=== PATIENT | male | born 1995 | race Caucasian/White ===

== ENCOUNTER 2016-12-18 11:04 | Emergency (ER) | payer SELFPAY ==
[~2016-12-18] VITALS: Ht 177.8 cm; Wt 154.2 kg
[~2016-12-18 11:04] MED LIST: AURALGAN O10 ML/BOTT OT; BACTROBAN2% TP; KEFLEX 500MG.500 MG PO; NOMEDS *; TESSALON PERLE100 MG PO; VOLTAREN75 MG PO; ZITHROMAX Z-PA250 M2 PO; ZOFRAN4 MG PO
--- NOTE | 2016-12-18 11:46 | Urgent Treatment Center Report ---
History of Present Issue Date/Time Seen by Provider 12/18/16 1120 Visit Reason Pt arrived:Walked Presenting Problem:PT STATES INJURING RIGHT ANKLE ON SATURDAY WHEN HE STEPPED OFF OF A STEP WRONG. Location if Accident:Relative's Property Onset of symptoms date/time:12/15/16/ or onset unknown for:MEDICAL HX UNKNOWN Have you (or family members/close friends) recently traveled outside the [place]? N If Yes, where/when: Have you had exposure to infectious disease within the past month? TB? Other? Specify: c/o right ankle pain s/p "rolling" ankle walking down stairs on Saturday, 3 days ago. Denies fall "just my foot went in and my ankle went out". Occasional ibuprofen helps some. Swelling and pain lateral ankle w/ pain radiating down lateral side of foot "towards my toes". No bruising. Tried working yesterday. [employer] at [facility] and walks alot. Pain was worse. Want to be sure no fracutre and ok to continue walking. Hasn't had any medication today. Denies weakness, Numbess, tingling. Ankle ROM slightly limited "but I can do it. Just hurts some." Source patient Exam Limitations no limitations ALLERGIES Coded Allergies: Penicillins (Mild, 09/04/16) History Medical History General CAD? No Angina: No [place]: No Hypertension? No Hyperlipidemia? No CHF? No DVT? No PE? No COPD? No Asthma? No Anemia? No GERD? No Gastric ulcers? No GI Bleed? No Hernia? No Thyroid Problems? No Hypothyroidism? No CVA? No Seizures? No Diabetes? No Insulin Dependent: No Insulin Pump: No Home FSBS? No Renal Insuffiency? No UTI? No Stones? No BPH? No GB Disease: No Nephritic Syndrome? No Asplenia? No Hepatitis? No Sickle Cell Disease? No Arthritis? No Migraines? No Cataracts? No Glaucoma? No MRSA? No HIV? No TB? No Anxiety? No Depression? No Cancer? No Immunization HX DT/Tetanus 1-4 Years Ago Surgical Hx Previous Surgery?Y TONSILLECTOMY DOG BIT FACE Social History Smoking Hx Smoker: Former Smoker Tobacco: No Packs/day 1 1/2 - 2 Packs Alcohol Alcohol: No Review of Systems All Other Systems Reviewed and Negative Musculoskeletal see HPI Skin see HPI Psychiatric/Neurological see HPI Physical Exam Vital Signs Vital Signs Date Time Temp Pulse Resp B/P Pulse O2 O2 Flow FiO2 Ox Delivery Rate 12/18 1251 98.1 71 20 142/84 95 12/18 1113 98.1 71 20 142/84 95 General Appearance normal appearance, no apparent distress Respiratory Status No: respiratory distress. Cardiovascular regular rate/rhythm, no murmur Peripheral Pulses Pulses normal Yes (DP/PT bilateral) Back gait abnormality (slight limp favoring rt foot) Extremities normal range of motion (rt toes, ankle, knee), normal capillary refill, swelling (lateral rt malleous), mild tenderness rt lateral malleous and 4th, 5th metatarsal anteriorly only Strength 5 Lower Ext (L), 5 Lower Ext (R) Neurologic alert Skin normal color, warm/dry Medical Decision Making LABS/Meds/Orders Pt receiving controlled substance in ED? No Results/Orders Orders Procedure Date/time Status STABILIZE JOINT 12/18 1236 Active XRAY/CT/US XRAY/CT/US XRAY ankle XR interpretation by discussed w/radiologist Xray Results normal/NAD (no fracture), normal variant off tallus Departure Departure Time of Disposition 1237 Disposition DC Home or Self Care(routine) Clinical Impression Primary Impression: Right ankle sprain Qualifiers: Encounter type: initial encounter Involved ligament of ankle: unspecified ligament Qualified Code: S93.401A - Sprain of unspecified ligament of right ankle, initial encounter Condition STABLE Referrals NO REFERRAL PCP for any new, worsening or persistant symptoms Patient Instructions DI for Ankle Sprain, How To Perform RICE (Rest, Ice, Compress, Elevate) Additional Instructions Read instructions Rest Ice 15-20 mins 3-4 times a day Brooks wrap Elevated Ibuprofen for pain/swelling Off work today and tomorrow but if still unable to return on , need to FU PCP Discharge Counseling Counseled pt/family regarding diagnosis, test results, medications/RX, home care, follow up needs at 1316
[2016-12-18 12:51] VITALS: BP 142/84
--- NOTE | 2016-12-18 13:08 | RADIOLOGY REPORT PS360 ---
ANKLE-RT-3 VIEWS HISTORY: Pain following injury INJURY ORDERING PHYSICIAN: JORDAN MARQUEZ APRN PATIENT AGE: 21 years COMPARISON: None FINDINGS: No fracture or dislocation. No lytic or blastic change. There is normal mineralization.. The joint spaces are well-preserved. No significant degenerative/arthritic changes. No erosive changes evident. IMPRESSION: Negative, no acute finding
[2017-01-28] MEDS ORDERED: MINOCYCLINE 10100 MG PO (05:51)
[2017-01-28] MEDS ORDERED: KEFLEX 500MG.500 MG PO (05:51)
[2017-01-29] MEDS ORDERED: TETRACYCLINE H500 MG PO (13:03)
[2017-01-29] MEDS ORDERED: FLEXERIL10 MG PO (14:39)
[2017-01-29] MEDS ORDERED: NAPROXEN SODIU500 MG PO (14:39)
[2017-01-31] MEDS ORDERED: KEFLEX 500MG.500 MG PO (09:18)
[2017-01-31] MEDS ORDERED: MINOCYCLINE 10100 MG PO (09:19)
[2017-01-31] MEDS ORDERED: PREDNISONE20 MG PO (10:20)
[2017-01-31] MEDS ORDERED: BACTROBAN22 TP (10:20)
[2017-01-31] MEDS ORDERED: Pepcid20 MG PO (10:20)
[2017-01-31] MEDS ORDERED: BENADRYL ALLERG25 M3 PO (10:20)
== END 2016-12-18 12:51 | disposition home or self-care (01) ==
LOC: UTC 11:04
DX: S93.401A Sprain of unspecified ligament of right ankle, initial encounter (principal); X50.1XXA Overexertion from prolonged static or awkward postures, initial encounter; Y92.009 Unspecified place in unspecified non-institutional (private) residence as the place of occurrence of the external cause

== ENCOUNTER 2017-10-15 17:12 | Emergency (ER) | payer MEDICAID ==
[~2017-10-15] VITALS: Ht 180.3 cm; Wt 149.7 kg
[~2017-10-15 17:12] MED LIST changes: +BACTROBAN22 TP; +BENADRYL ALLERG25 M3 PO; +FLEXERIL10 MG PO; +IBUPROFEN800 MG PO; +MINOCYCLINE 10100 MG PO; +NAPROXEN SODIU500 MG PO; +PREDNISONE20 MG PO; +Pepcid20 MG PO; +TETRACYCLINE H500 MG PO; +ZOFRAN ODT4 MG PO
--- OUTSIDE RECORDS SUMMARY | 2017-10-15 17:18 | External Medical Summary Rpt | CCD ---
Demographics Preferred Language Swedish Marital Status Unknown Pentecostalism Affiliation Unknown Race Unknown Ethnic Group Unknown Author Author , THIERNO PA Address Unknown Phone [email or web address] Immunization Name Date Rout CVX Reac Dose Comm Prov Is Faci e tion ent ider Refu lity Give sed n MMR 08-0 3 999 Hist H176 No H176 5-19 oric 98 al Info rmat ion - Sour ce Unsp ecif ied
--- OUTSIDE RECORDS SUMMARY | 2017-10-15 17:18 | External Medical Summary Rpt | CCD ---
Author Author , THIERNO PA Address Unknown Phone [email or web address] Purpose Continuity of Care Document - 06-19-2017 through 2016 Problems Code Diagnosis DOS Provider Status A08.4 VIRAL INTESTINAL INFECTION, UNSPECIFIED L72.9 FOLLICULAR CYST OF THE SKIN AND SUBCUTANEOU S TISSUE, UNSP M43.6 TORTICOLLIS M54.2 CERVICALGIA R03.0 ELEVATED BLOOD-PRESS URE READING, W/O DIAGNOSIS OF HTN R10.9 UNSPECIFIED ABDOMINAL PAIN T78.40XA ALLERGY, UNSPECIFIED , INITIAL ENCOUNTER
--- OUTSIDE RECORDS SUMMARY | 2017-10-15 17:18 | External Medical Summary Rpt | CCD ---
Author Author [employer] Organization [employer] Address Unknown Phone Unavailable Purpose Continuity of Care Document - through 2016
--- OUTSIDE RECORDS SUMMARY | 2017-10-15 17:18 | External Medical Summary Rpt | CCD ---
Demographics Preferred Language Chinese Marital Status Unknown Islam Affiliation Unknown Race Unknown Ethnic Group Unknown Author Author , HTIERNO PA Address Unknown Phone [email or web address] Immunization Name Date Rout CVX Reac Dose Comm Prov Is Faci e tion ent ider Refu lity Give sed n MMR 08-0 3 999 Hist H176 No H176 5-19 oric 98 al Info rmat ion - Sour ce Unsp ecif ied
--- OUTSIDE RECORDS SUMMARY | 2017-10-15 17:18 | External Medical Summary Rpt | CCD ---
Author Author , THIERNO PA Address Unknown Phone .[employer] Purpose Continuity of Care Document - 06-19-2017 through 2016 Problems Code Diagnosis DOS Provider Status A08.4 VIRAL INTESTINAL INFECTION, UNSPECIFIED L72.9 FOLLICULAR CYST OF THE SKIN AND SUBCUTANEOU S TISSUE, UNSP M43.6 TORTICOLLIS M54.2 CERVICALGIA R03.0 ELEVATED BLOOD-PRESS URE READING, W/O DIAGNOSIS OF HTN R10.9 UNSPECIFIED ABDOMINAL PAIN T78.40XA ALLERGY, UNSPECIFIED , INITIAL ENCOUNTER
--- OUTSIDE RECORDS SUMMARY | 2017-10-15 17:18 | External Medical Summary Rpt ---
Author Author THIERNO Bliss, [employer] Organization [employer] Address Unknown Phone Unavailable Results Amylase [Enzymatic activity/volume] in Serum or Plasma Observa Value Referen Units Interpr Notes Date tion ce etation Range Amylase 25 - 115 U/L Normal No Jun 19 [Enzymati informati 2017 c on in 10:38 AM activity/ source volume] data in Serum or Plasma Comprehensive metabolic 2000 panel in Serum or Plasma Observa Value Referen Units Interpr Notes Date tion ce etation Range Albumin/G 1.1 - 1.8 No Normal No Jun 19 lobulin informati informati 2016 [Mass on in on in 10:38 AM ratio] in source source Serum or data data Plasma Albumin 3.4 - 5.0 gm/dL Normal No Jun 19 [Mass/vol informati 2017 ume] in on in 10:38 AM Serum or source Plasma data Alkaline 46 - 116 U/L Normal No Jun 19 phosphata informati 2017 se on in 10:38 AM [Enzymati source c data activity/ volume] in Serum or Plasma Bilirubin 0.2 - 1.0 mg/dL Normal No Jun 19 .total informati 2016 [Mass/vol on in 10:38 AM ume] in source Serum or data Plasma Urea 7 - 18 mg/dL Normal No Jun 19 nitrogen informati 2017 [Mass/vol on in 10:38 AM ume] in source Serum or data Plasma Calcium 8.5 - mg/dL Normal No Jun 19 [Mass/vol 10.1 informati 2016 ume] in on in 10:38 AM Serum or source Plasma data Chloride 98 - 107 mmoL/L Normal No Jun 19 [Moles/vo informati 2017 lume] in on in 10:38 AM Serum or source Plasma data Carbon 21.0 - mmoL/L Normal No Jun 19 dioxide, 32.0 informati 2017 total on in 10:38 AM [Moles/vo source lume] in data Serum or Plasma Creatinin 0.70 - mg/dL Normal No Jun 19 e 1.30 informati 2017 [Mass/vol on in 10:38 AM ume] in source Serum or data Plasma Creatinin 50 - 200 ML/MIN High No Jun 19 e renal inform2016 clearance on in 10:38 AM source predicted data by Cockcroft -Gault formula Estimated >60 ML/MIN No REFERENCE Jun 19 informati RANGE: 2017 glomerula on in >60 10:38 AM r source ML/MIN/1. filtratio data 73 SQUARE n rate METERSIf (GF this patient is -A merican, then multiply theresult by 1.210. Globulin 1.3 - 3.2 gm/dL High No Jun 19 [Mass/vol informati 2016 ume] in on in 10:38 AM Serum source data Glucose 74 - 106 mg/dL Normal No Jun 19 [Mass/vol informati 2016 ume] in on in 10:38 AM Serum or source Plasma data Potassium 3.5 - 5.1 mmoL/L Normal No Jun 192016 [Moles/vo on in 10:38 AM lume] in source Serum or data Plasma Sodium 136 - 145 mmoL/L Normal No Jun 19 [Moles/vo informati 2016 lume] in on in 10:38 AM Serum or source Plasma data Aspartate 15 - 37 U/L Normal No Jun 192016 aminotran on in 10:38 AM sferase source [Enzymati data c activity/ volume] in Serum or Plasma Alanine 12 - 78 U/L Normal No Jun 19 aminotran 2016 sferase on in 10:38 AM [Enzymati source c data activity/ volume] in Serum or Plasma Protein 6.4 - 8.2 gm/dL Normal No Jun 19 [Mass/vol informati 2016 ume] in on in 10:38 AM Serum or source Plasma data Lipase [Enzymatic activity/volume] in Serum or Plasma Observa Value Referen Units Interpr Notes Date tion ce etation Range Lipase 73 - 393 U/L Normal No Jun 19 [Enzymati informati 2017 c on in 10:38 AM activity/ source volume] data in Serum or Plasma CBC W Auto Differential panel in Blood Observa Value Referen Units Interpr Notes Date tion ce etation Range Basophils 0 - 0.2 K/MM3 Normal No Jun 19 inform2016 [#/volume on in 10:05 AM ] in source Blood by data Automated count Basophils 0.1 - 2.0 % Normal No Jun 19 / inform2016 leukocyte on in 10:05 AM s in source Blood by data Automated count Eosinophi 0.0 - 0.4 K/mm3 Normal No Jun 16 ls 2016 [#/volume on in 10:05 AM ] in source Blood by data Automated count Eosinophi 0.1 - % Normal No Jun 19 ls/100 12.0 2016 leukocyte on in 10:05 AM s in source Blood by data Automated count Granulocy 1.3 - 8.0 K/mm3 Normal No Jun 19 nessa inform2016 [#/volume on in 10:05 AM ] in source Blood by data Automated count Granulocy 37.0 - % Normal No Jun 19 nessa/100 80.0 inform2016 leukocyte on in 10:05 AM s in source Blood by data Automated count Hematocri 42.0 - % Normal No Jun 19 t [Volume 52.0 2016 on in 10:05 AM Fraction] source of Blood data Hemoglobi 14.1 - g/dL No No Jun 19 n 18.0 informati 2016 [Mass/vol on in on in 10:05 AM ume] in source source Blood data data Lymphocyt 0.7 - 4.5 K/mm3 Normal No Jun 19 es 2016 [#/volume on in 10:05 AM ] in source Unspecifi data ed specimen by Automated count Lymphocyt 10 - 50 % Normal No Jun 19 es 2016 [#/volume on in 10:05 AM ] in source Unspecifi data ed specimen by Automated count Erythrocy 27 - 31.2 pg Normal No Jun 19 te mean 2016 corpuscul on in 10:05 AM ar source hemoglobi data n [Entitic mass] Erythrocy 31.8 - g/dl Normal No Jun 19 te mean 35.4 2016 corpuscul on in 10:05 AM ar source hemoglobi data n concentra tion [Mass/vol ume] by Automated count Erythrocy 82.2 - fl Normal No Jun 19 te mean 97.8 2016 corpuscul on in 10:05 AM ar volume source [Entitic data volume] by Automated count Monocytes 0.1 - 1.0 K/mm3 Normal No Jun 192016 [#/volume on in 10:05 AM ] in source Blood by data Automated count Monocytes 1.7 - 9.3 % Normal No Jun 19 /100 inform2016 leukocyte on in 10:05 AM s in source Blood by data Automated count Platelet 7.4 - fl Normal No Jun 19 mean 10.4 2016 volume on in 10:05 AM [Entitic source volume] data in Blood by Automated count Platelets 142 - 424 K/mm3 Normal No Jun 19 inform2016 [#/volume on in 10:05 AM ] in source Blood data Erythrocy 4.6 - 6.2 M/mm3 Normal No Jun 19 nessa inform2016 [#/volume on in 10:05 AM ] in source Amniotic data fluid Erythrocy 11.5 - % Normal No Jun 19 te 17.5 ati 2016 distribut on in 10:05 AM ion width source [Entitic data volume] by Automated count Leukocyte 4.8 - K/MM3 Normal No Jun 19 s 10.8 2016 [#/volume on in 10:05 AM ] in source Blood data
--- NOTE | 2017-10-15 17:46 | Urgent Treatment Center Report ---
History of Present Issue Date/Time Seen by Provider 10/15/17 4870 Visit Reason Pt arrived:Walked Presenting Problem:PT C/O SORE THROAT, BODYACHES, TIRED, COUGH, CHILLS Location if Accident: Onset of symptoms date/time:/ or onset unknown for:MEDICAL HX UNKNOWN Have you (or family members/close friends) recently traveled outside the [place]? N If Yes, where/when: Have you had exposure to infectious disease within the past month? TB? Other? Specify: Patient state that daughter recently diagnosed with flu State that he has been having sore throat, body aches cough and chillls along with feeling tired all day State that he is unsure if he has had a fever or not because he has not checked his temp States that he came in to get checked for the flu ALLERGIES Coded Allergies: Penicillins (Mild, 09/04/16) Home Medications Active Scripts Ibuprofen (Ibuprofen 800MG) 800 MG PO Q6HP PRN pain #30 TAB Prov: 04/15/17 Ondansetron (Zofran 4MG Odt) 4 MG PO Q6HP PRN NAUSEA AND VOMITING #25 ODT Prov: 06/19/17 History Medical History General CAD? No Angina: No [place]: No Hypertension? No Hyperlipidemia? No CHF? No DVT? No PE? No COPD? No Asthma? No Anemia? No GERD? No Gastric ulcers? No GI Bleed? No Hernia? No Thyroid Problems? No Hypothyroidism? No CVA? No Seizures? No Diabetes? No Insulin Dependent: No Insulin Pump: No Home FSBS? No Renal Insuffiency? No UTI? No Stones? No BPH? No GB Disease: No Nephritic Syndrome? No Asplenia? No Hepatitis? No Sickle Cell Disease? No Arthritis? No Migraines? No Cataracts? No Glaucoma? No MRSA? No HIV? No TB? No Anxiety? No Depression? No Cancer? No Immunization HX DT/Tetanus Unknown Surgical Hx Previous Surgery?Y TONSILLECTOMY DOG BIT FACE Social History Smoking Hx Smoker: Never Smoker Tobacco: No Packs/day 1 1/2 - 2 Packs Alcohol Alcohol: No Review of Systems All Other Systems Reviewed and Negative Constitutional chills ENT throat pain. Respiratory cough, denies shortness of breath, denies wheezing Musculoskeletal other (body aches) Physical Exam Vital Signs Vital Signs Date Time Temp Pulse Resp B/P Pulse O2 O2 Flow FiO2 Ox Delivery Rate 10/15 1731 98.3 122 18 144/104 94 General Appearance normal appearance, WD/WN, no apparent distress Ear, Nose, Throat throat mildly red, irritated, no exudate Respiratory Status Yes: trachea midline, chest symmetrical, non tender chest. No: respiratory distress. Lung Sounds bilateral: normal breath sounds, lungs clear. Cardiovascular normal exam, regular rate/rhythm, no peripheral edema Neurologic alert, normal exam, oriented x 3 Medical Decision Making LABS/Meds/Orders Pt receiving controlled substance in ED? No Results/Orders Orders Procedure Date/time Status [facility] STREP SCREEN 10/15 1730 Active [facility] FLU A,B 10/15 1730 Active Departure Departure Time of Disposition 1756 Disposition DC Home or Self Care(routine) Clinical Impression Primary Impression: Viral illness Condition STABLE Patient Instructions DI for Viral Upper Respiratory Infection -- Adult Additional Instructions Watch your temp when you are exposed to the influenza it may take several days for you to began showing symptoms and then you will began to have a fever when fever and symptoms start you want to get checked for flu * Monitor Temp. Tylenol and/or Ibuprofen as needed. ER if fever is no less than 101 despite alternating Tylenol and Ibuprofen * Encourage fluids, water, Gatorade, powerade, pedialyte if /toddler/or child * Warm salt water gargles for throat irritation *Warm fluids *Sore throat lozenges *Sleep elevated *humidifier or vaporizer Lots of rest Increase fluids, water, Gatorade, powerade *Bromfed may cause drowsiness. Know how it effect you or your child. Before driving, caring for small children or sending your child to school Follow up IMMEDIATELY for new or worsening of symptoms OR no noticeable improvement over the next 48-72 hours. 911 immediately for any life threatening symptoms such as chest pain or difficulty breathing Discharge Counseling Counseled pt/family regarding diagnosis, test results, medications/RX, home care, follow up needs Prescriptions Current Visit Scripts D-METHORPHAN HB/P-EPD HCL/BPM (Bromfed Dm Cough Syrup) 10 ML PO Q4HP PRN cough #200 SYR at 6781
--- NOTE | 2017-10-15 17:46 | Urgent Treatment Center Report ---
History of Present Issue Date/Time Seen by Provider 10/15/17 2760 Visit Reason Pt arrived:Walked Presenting Problem:PT C/O SORE THROAT, BODYACHES, TIRED, COUGH, CHILLS Location if Accident: Onset of symptoms date/time:/ or onset unknown for:MEDICAL HX UNKNOWN Have you (or family members/close friends) recently traveled outside the [place]? N If Yes, where/when: Have you had exposure to infectious disease within the past month? TB? Other? Specify: Patient state that daughter recently diagnosed with flu State that he has been having sore throat, body aches cough and chillls along with feeling tired all day State that he is unsure if he has had a fever or not because he has not checked his temp States that he came in to get checked for the flu ALLERGIES Coded Allergies: Penicillins (Mild, 09/04/16) Home Medications Active Scripts Ibuprofen (Ibuprofen 800MG) 800 MG PO Q6HP PRN pain #30 TAB Prov: 04/15/17 Ondansetron (Zofran 4MG Odt) 4 MG PO Q6HP PRN NAUSEA AND VOMITING #25 ODT Prov: 06/19/17 History Medical History General CAD? No Angina: No [place]: No Hypertension? No Hyperlipidemia? No CHF? No DVT? No PE? No COPD? No Asthma? No Anemia? No GERD? No Gastric ulcers? No GI Bleed? No Hernia? No Thyroid Problems? No Hypothyroidism? No CVA? No Seizures? No Diabetes? No Insulin Dependent: No Insulin Pump: No Home FSBS? No Renal Insuffiency? No UTI? No Stones? No BPH? No GB Disease: No Nephritic Syndrome? No Asplenia? No Hepatitis? No Sickle Cell Disease? No Arthritis? No Migraines? No Cataracts? No Glaucoma? No MRSA? No HIV? No TB? No Anxiety? No Depression? No Cancer? No Immunization HX DT/Tetanus Unknown Surgical Hx Previous Surgery?Y TONSILLECTOMY DOG BIT FACE Social History Smoking Hx Smoker: Never Smoker Tobacco: No Packs/day 1 1/2 - 2 Packs Alcohol Alcohol: No Review of Systems All Other Systems Reviewed and Negative Constitutional chills ENT throat pain. Respiratory cough, denies shortness of breath, denies wheezing Musculoskeletal other (body aches) Physical Exam Vital Signs Vital Signs Date Time Temp Pulse Resp B/P Pulse O2 O2 Flow FiO2 Ox Delivery Rate 10/15 1731 98.3 122 18 144/104 94 General Appearance normal appearance, WD/WN, no apparent distress Ear, Nose, Throat throat mildly red, irritated, no exudate Respiratory Status Yes: trachea midline, chest symmetrical, non tender chest. No: respiratory distress. Lung Sounds bilateral: normal breath sounds, lungs clear. Cardiovascular normal exam, regular rate/rhythm, no peripheral edema Neurologic alert, normal exam, oriented x 3 Medical Decision Making LABS/Meds/Orders Pt receiving controlled substance in ED? No Results/Orders Orders Procedure Date/time Status [facility] STREP SCREEN 10/15 1730 Active [facility] FLU A,B 10/15 1730 Active Departure Departure Time of Disposition 1756 Disposition DC Home or Self Care(routine) Clinical Impression Primary Impression: Viral illness Condition STABLE Patient Instructions DI for Viral Upper Respiratory Infection -- Adult Additional Instructions Watch your temp when you are exposed to the influenza it may take several days for you to began showing symptoms and then you will began to have a fever when fever and symptoms start you want to get checked for flu * Monitor Temp. Tylenol and/or Ibuprofen as needed. ER if fever is no less than 101 despite alternating Tylenol and Ibuprofen * Encourage fluids, water, Gatorade, powerade, pedialyte if /toddler/or child * Warm salt water gargles for throat irritation *Warm fluids *Sore throat lozenges *Sleep elevated *humidifier or vaporizer Lots of rest Increase fluids, water, Gatorade, powerade *Bromfed may cause drowsiness. Know how it effect you or your child. Before driving, caring for small children or sending your child to school Follow up IMMEDIATELY for new or worsening of symptoms OR no noticeable improvement over the next 48-72 hours. 911 immediately for any life threatening symptoms such as chest pain or difficulty breathing Discharge Counseling Counseled pt/family regarding diagnosis, test results, medications/RX, home care, follow up needs Prescriptions Current Visit Scripts D-METHORPHAN HB/P-EPD HCL/BPM (Bromfed Dm Cough Syrup) 10 ML PO Q4HP PRN cough #200 SYR at 7258
[2017-10-15] MEDS ORDERED: BROMFED DM COU118 ML PO (17:59)
[2017-10-15 18:06] LABS: UTC STREP SCREEN NOT DETECTED (NOTDETECTED)
[2017-10-15 18:30] VITALS: BP 140/82
[2017-10-16] MEDS ORDERED: ZITHROMAX Z PA250 MG PO (19:26)
[2017-10-16] MEDS ORDERED: TAMIFLU 75MG CA75 MG PO (19:26)
== END 2017-10-15 18:31 | disposition home or self-care (01) ==
LOC: UTC 17:12
PROVIDERS: Nurse Practitioner
DX: B34.9 Viral infection, unspecified (principal)